=== PATIENT | female | born 1940 | race Caucasian/White ===

== ENCOUNTER 2017-03-23 13:09 | Emergency (ER) | payer MEDICARE, OTHER ==
[~2017-03-23] VITALS: Ht 162.6 cm; Wt 63.5 kg
[~2017-03-23 13:09] MED LIST: DULO30CA2 PO; FESO8TAB PO; HYDR12.58 PO; LISI-170 PO; MELA1TAB22 PO; METO-93 PO; SIMV20TA3 PO; TEMA15CA PO; TRAM50TA2 PO
[2017-03-23] MEDS ORDERED: SODIUM CHLORIDE FLUSH 10ML SYR IVF ONE (14:00)
[2017-03-23] MEDS ORDERED: SODIUM CHLORIDE 0.9% 1,000ML IVBOLUS ONE (14:00)
[2017-03-23] MEDS ORDERED: PANTOPRAZOLE 40 MG IV IVP ONE (14:00)
[2017-03-23] MEDS ORDERED: PANTOPRAZOLE 40 MG IV ONE (14:05)
[2017-03-23 14:28] LABS: BLOOD UREA NITROGEN 15 mg/dL (7-18)
[2017-03-23 15:40] VITALS: BP 140/66
== END 2017-03-23 15:42 | disposition home or self-care (01) ==
LOC: ED 13:24
DX: K92.1 Melena (principal); I10 Essential (primary) hypertension
CPT/HCPCS: 36415; 80048; 82040; 85025; 85610; 85730; 86850; 86900; 96361; 96374; 99284; C9113; J7030

== ENCOUNTER → 2021-05-28 | Outpatient (CLI) | payer MEDICARE ==
[~2021-05-28] MED LIST changes: -HYDR12.58 PO; +HYDROCHLOROTH12.5 MG PO; +SIMV20TA19 PO; -SIMV20TA3 PO
== END | disposition home or self-care (01) ==
LOC: CFH 15:14
PROVIDERS: ATTEND Orthopaedic Surgery
DX: S92.211A Displaced fracture of cuboid bone of right foot, initial encounter for closed fracture (principal); S93.324D Dislocation of tarsometatarsal joint of right foot, subsequent encounter; M81.0 Age-related osteoporosis without current pathological fracture; X58.XXXA Exposure to other specified factors, initial encounter; Y93.89 Activity, other specified; Y92.89 Other specified places as the place of occurrence of the external cause; Y99.8 Other external cause status